=== PATIENT | male | born 1975 | race Hispanic/Latino ===

== ENCOUNTER 2022-10-08 12:41 | Observation (INO) | payer BC ==
[~2022-10-08] VITALS: Ht 170.2 cm; Wt 99.8 kg
[2022-10-08] MEDS ORDERED: ASPIRIN 81 MG CHEW TAB PO ONE (13:00)
[2022-10-08] MEDS ORDERED: ASPIRIN 325 MG TAB PO ONE (13:00)
[2022-10-08 14:50] VITALS: BP 138/88
[2022-10-08] MEDS ORDERED: ASPIRIN 325 MG TAB ONE (14:55)
[2022-10-08 15:33] VITALS: BP 138/88
[2022-10-08] MEDS ORDERED: ASPIRIN81 MG PO (16:12)
[2022-10-08] MEDS ORDERED: LIPITOR20 MG PO (16:12)
[2022-10-08] MEDS ORDERED: CARVEDILOL ER80 MG PO (16:12)
[2022-10-08] MEDS ORDERED: DIOVAN80 MG PO (16:12)
[2022-10-08] MEDS ORDERED: CLOPIDOGREL75 MG PO (16:12)
[2022-10-08 17:02] LABS: CREATINE KINASE 65 IU/L (30-200)
[2022-10-08] MEDS ORDERED: ACETAMINOPHEN 325 MG TAB PO PRN (20:15)
[2022-10-08 20:16] VITALS: BP 144/96
[2022-10-08 20:20] VITALS: BP 144/96
[2022-10-08] MEDS ORDERED: ATORVASTATIN 40 MG TAB PO SCH (21:00)
[2022-10-08] MEDS ORDERED: VALSARTAN 80 MG TAB PO SCH (21:00)
[2022-10-08] MEDS ORDERED: CARVEDILOL PHOSPHATE PO SCH (21:00)
[2022-10-08] MEDS ORDERED: ASPIRIN 81 MG CHEW TAB PO SCH (21:00)
[2022-10-08] MEDS ORDERED: CLOPIDOGREL BISULFATE 75 MG TAB PO SCH (21:00)
[2022-10-08] MEDS ORDERED: CARVEDILOL 10 MG CAPCR PO SCH (21:00)
[2022-10-08] MEDS ORDERED: HYDRALAZINE HCL 20 MG/ML VIAL IV PRN (23:30)
[2022-10-08] MEDS ORDERED: ONDANSETRON HCL INJ 2MG/ML 2ML 2 MG/ML VIAL IV PRN (23:30)
[2022-10-08 23:40] VITALS: BP 122/81
[2022-10-09] MEDS ORDERED: IOPAMIDOL 370 MG/ML 100 ML INFUS..BTL INJ ONE (00:14)
[2022-10-09 04:29] VITALS: BP 137/91
[2022-10-09 04:56] LABS: BASOPHILS # (AUTO) 0.1 (0.0-0.1); BASOPHILS % 0.6 % (0.0-1.0); EOSINOPHILS # (AUTO) 0.2 (0.0-0.4); HEMOGLOBIN 14.2 g/dL (14.0-18.0); LYMPHOCYTES # (AUTO) 3.2 (1.0-3.2); LYMPHOCYTES % 32.6 % (18.0-39.1); MEAN CORPUSCULAR HEMOGLOBIN 30.1 pg (28-32); MEAN CORPUSCULAR VOLUME 91.1 fL (81-99); MONOCYTES # (AUTO) 0.9 (0.2-0.8); MONOCYTES % 9.1 % (4.4-11.3); NEUTROPHILS # (AUTO) 5.4 (2.1-6.9); NEUTROPHILS % 55.3 % (38.7-80.0); PLATELET COUNT 247 x10e3/uL (140-360); RED BLOOD COUNT 4.72 x10e6/uL (4.3-5.7); RED CELL DISTRIBUTION WIDTH 12.3 % (11.7-14.4)
[2022-10-09 05:14] LABS: ANION GAP 14.2 mmol/L (8-16); CALCIUM 9.3 mg/dL (8.4-10.2); CREATININE, SERUM 0.92 mg/dL (0.72-1.25); POTASSIUM 4.2 mmol/L (3.5-5.1)
[2022-10-09 07:29] LABS: CREATINE KINASE MB 0.7 ng/mL (0-5.0)
[2022-10-09 08:07] VITALS: BP 128/88
[2022-10-09 08:11] VITALS: BP 128/88
[2022-10-09] MEDS ORDERED: ASPIRIN 325 MG TAB EC PO SCH (09:00)
[2022-10-09 12:00] VITALS: BP 133/84
[2022-10-09] MEDS ORDERED: ONDANSETRON HCL 4 MG ORAL DISINTEGRATING TAB PO PRN (12:30)
== END 2022-10-09 14:00 | disposition home or self-care (01) ==
LOC: FSED 12:50 → ERHOLD 13:02 → MED/SURG 14:55
PROVIDERS: ADMIT Internal Medicine; ATTEND Internal Medicine
DX: R07.89 Other chest pain (principal); R00.2 Palpitations; I25.10 Atherosclerotic heart disease of native coronary artery without angina pectoris; I25.2 Old myocardial infarction; E78.5 Hyperlipidemia, unspecified; I10 Essential (primary) hypertension; F17.200 Nicotine dependence, unspecified, uncomplicated; Z20.822 Contact with and (suspected) exposure to COVID-19; Z79.02 Long term (current) use of antithrombotics/antiplatelets; Z79.82 Long term (current) use of aspirin; Z79.899 Other long term (current) drug therapy; Z95.5 Presence of coronary angioplasty implant and graft; Z82.49 Family history of ischemic heart disease and other diseases of the circulatory system
CPT/HCPCS: 36415 ×2; 71045; 71260; 80048; 80053; 82550 ×2; 82553 ×2; 84484 ×2; 85025 ×2; 93005; 99284; G0378 ×2; Q9967; U0002